=== PATIENT | female | born 1985 | race Caucasian/White ===

== ENCOUNTER → 2017-02-15 | Outpatient (REF) | payer OTHER | LOC: M LAB REF 12:50 | PROVIDERS: ATTEND Physician Assistant Medical | DX: Z01.419 Encounter for gynecological examination (general) (routine) without abnormal findings (principal) | CPT/HCPCS: 87070; 87077; 87186; G0123 ==

== ENCOUNTER → 2017-07-17 | Outpatient (REF) | payer OTHER | LOC: M LAB REF 09:34 | PROVIDERS: ATTEND Physician Assistant | DX: J02.9 Acute pharyngitis, unspecified (principal) ==

== ENCOUNTER → 2018-06-07 | Outpatient (CLI) | payer OTHER ==
[2018-06-08 10:04] LABS: RUBELLA IgG QUALITATIVE IMMUNE (IMMUNE)
[2018-06-09 08:05] LABS: MUMPS VIRUS IgG ANTIBODY >300.0 AU/mL (Immune >10.9)
== END ==
LOC: M LAB 15:14
DX: Z02.0 Encounter for examination for admission to educational institution (principal)

== ENCOUNTER → 2020-09-21 | Outpatient (REF) | payer OTHER | LOC: M LAB REF 09:30 | PROVIDERS: ATTEND Nurse Practitioner Family | DX: R30.0 Dysuria (principal) ==

== ENCOUNTER → 2025-03-11 | Outpatient (REF) | payer OTHER ==
[2025-03-11 19:09] LABS: C REACTIVE PROTEIN QUANTITATIV 0.65 MG/DL (<1.0); IMMUNOGLOBULIN A 128.3 MG/DL (40-350); IRON (FE) 125 UG/DL (50-170); PERCENT SATURATION 32.8 % (13.2-45.0); RHEUMATOID FACTOR QUANT < 3.5 IU/ML (<14); TOTAL IRON BINDING CAPACITY 381 UG/DL (250-425)
[2025-03-11 19:11] LABS: FERRITIN 14.4 NG/ML (7.3-270.7)
[2025-03-11 19:12] LABS: THYROID PEROXIDASE ANTIBODY 50 U/ML (<60.0)
[2025-03-13 16:44] LABS: ANA SCREEN, IFA NEGATIVE (NEGATIVE)
[2025-03-14 01:22] LABS: TISSUE TRANSGLUTAMINASE IgA < 1.0 U/mL (<15.0)
== END ==
LOC: M LAB REF 17:19
PROVIDERS: ATTEND Internal Medicine
DX: G43.109 Migraine with aura, not intractable, without status migrainosus (principal); R53.83 Other fatigue

== ENCOUNTER → 2025-03-24 | Outpatient (REF) | payer OTHER ==
[2025-03-25 13:07] LABS: BACTERIA, URINE AUTO 1+ (NEGATIVE); CALCIUM OXALATE CRYSTALS SMALL; MUCUS, URINE SMALL (NEGATIVE); RBC, URINE AUTO 5 /HPF (0-3); SQUAMOUS EPITHELIAL CELL UR AU 1 /HPF (0-6); WBC, URINE AUTO 2 /HPF (0-3)
== END ==
LOC: M LAB REF 12:23
PROVIDERS: ATTEND Internal Medicine
DX: R31.9 Hematuria, unspecified (principal)

== ENCOUNTER → 2025-03-26 | Outpatient (CLI) | payer OTHER | LOC: M PLAIMG 13:36 | PROVIDERS: ATTEND Internal Medicine | DX: G43.109 Migraine with aura, not intractable, without status migrainosus (principal) ==

== ENCOUNTER → 2025-04-01 | Outpatient (REF) | payer OTHER | LOC: M LAB REF 17:07 | PROVIDERS: ATTEND Otolaryngology | DX: J34.89 Other specified disorders of nose and nasal sinuses (principal) ==

== ENCOUNTER → 2025-08-19 | Outpatient (REF) | payer OTHER ==
[2025-08-19 19:08] LABS: IRON (FE) 129.0 UG/DL (50-170); PERCENT SATURATION 39.9 % (13.2-45.0)
== END ==
LOC: M LAB REF 17:15
PROVIDERS: ATTEND Internal Medicine
DX: E61.1 Iron deficiency (principal)